=== PATIENT | male | born 1960 | race Caucasian/White ===

== ENCOUNTER 2021-10-17 06:03 | Day surgery (SDC) | payer MEDICAID ==
[~2021-10-17] VITALS: Ht 165.1 cm; Wt 117.9 kg
[2021-10-17] MEDS ORDERED: fentaNYL CITRATE/PF 100 MCG/2 ML AMP ONE (06:18)
[2021-10-17] MEDS ORDERED: SIMETHICONE 40 MG/0.6 ML ML ONE (06:18)
[2021-10-17] MEDS ORDERED: MIDAZOLAM HCL 5 MG/5 ML VIAL ONE (06:19)
[2021-10-17 11:28] VITALS: BP_SYST 152
== END 2021-10-17 11:28 | disposition home or self-care (01) ==
LOC: SDS 06:03 → SMU 06:03 → SDS 11:28
PROVIDERS: ATTEND Internal Medicine
DX: Z12.11 Encounter for screening for malignant neoplasm of colon (principal); D12.2 Benign neoplasm of ascending colon; D12.5 Benign neoplasm of sigmoid colon; D12.8 Benign neoplasm of rectum; K57.30 Diverticulosis of large intestine without perforation or abscess without bleeding; K64.8 Other hemorrhoids; E11.9 Type 2 diabetes mellitus without complications; E66.9 Obesity, unspecified; Z68.41 Body mass index [BMI] 40.0-44.9, adult; K80.20 Calculus of gallbladder without cholecystitis without obstruction; I11.0 Hypertensive heart disease with heart failure; I50.9 Heart failure, unspecified; E78.00 Pure hypercholesterolemia, unspecified; Z87.891 Personal history of nicotine dependence; Z20.822 Contact with and (suspected) exposure to COVID-19
CPT/HCPCS: 36415 ×2; 45380; 45385; 82962; 87426; 88305; 99152; 99153; G0378; J2250; J3010; U0003